=== PATIENT | male | born 1965 | race Caucasian/White ===

== ENCOUNTER 2023-11-02 17:26 | Emergency (ER) | payer OTHER, SELFPAY ==
[2023-11-02 17:27] VITALS: BP 178/77; PULSE 67; RESP 16; TEMP 37.1; O2SAT 98; BMI 30.9
--- NOTE | 2023-11-02 17:56 | EKG12_ITS ---
Test Reason : CP Blood Pressure : / mmHG Vent. Rate : 068 BPM Atrial Rate : 068 BPM P-R Int : 190 ms QRS Dur : 086 ms QT Int : 394 ms P-R-T Axes : 005 016 024 degrees QTc Int : 418 ms Normal sinus rhythm Normal ECG Confirmed by KP ANTOINE, JODEE ([id number]), editor continuity and script HAILEE FRANCISCO ([id number]) on 11/07/2023 10:49:40 A M Referred By: ES/UG Confirmed By:YOLANDE GOODRICH MD
--- NOTE | 2023-11-02 17:58 | EX.ED.DYSGE1 ---
HPI <CLARA Alvarenga - Last Filed: 11/02/23 18:40> History of Present Illness Chief Complaint: Chest Pain Narrative Narrative: Patient is a 58-year-old male with history of hypertension hyperlipidemia, diabetes, CAD with history of CABG who is from [facility]. Patient is here with his family for camping. Patient woke up at roughly 4 AM, and he states he was sweaty, this has been ongoing for months. Patient is he noticed some slight chest discomfort midsternal that is been on and off for the last several hours. He is currently not having any pain however secondary to being out of town, his history of cardiac disease, he wanted to make sure everything was okay. Patient dates he does not feel like he is getting ready to have a sinus infection with some pressure in his face however patient has no cough, fever chills nausea or vomiting. Patient states that the pain comes and goes and does not matter if he is exerting himself or not. PFS <CLARA Alvarenga - Last Filed: 11/02/23 18:40> [facility] Home Medications ?Medication ?Instructions ?Recorded ?Last Taken ?Type alprazolam 0.5 mg tablet 0.5 mg PO BID PRN anxiety 11/02/23 Unknown History amlodipine 10 mg tablet 10 mg PO DAILY 11/02/23 Unknown History aspirin 81 mg chewable tablet 1 tab PO DAILY 11/02/23 Unknown History atorvastatin 80 mg tablet 80 mg PO DAILY 11/02/23 Unknown History clopidogrel 75 mg tablet 75 mg PO DAILY 11/02/23 Unknown History glipizide 10 mg tablet 10 mg PO BID 11/02/23 Unknown History hydralazine 100 mg tablet 100 mg PO BID 11/02/23 Unknown History insulin lispro 100 unit/mL 15 unit subcut BID 11/02/23 Unknown History subcutaneous pen (Humalog KwikPen (U-100) Insulin) lisinopril 20 1 tab PO DAILY 11/02/23 Unknown History mg-hydrochlorothiazide 12.5 mg tablet metformin 1,000 mg tablet 1,000 mg PO BID 11/02/23 Unknown History metoprolol tartrate 25 mg tablet 25 mg PO BID 11/02/23 Unknown History Allergy/AdvReac Type Severity Reaction Status Date / Time sulfamethoxazole (From Allergy Intermediate Hives Verified 11/02/23 17:31 Bactrim) trimethoprim (From Bactrim) Allergy Intermediate Hives Verified 11/02/23 17:31 Social History Smoking Status: Never smoker ROS <CLARA Alvarenga - Last Filed: 11/02/23 18:40> ROS ED ROS Narrative Constitutional: Negative for fever, chills, weight loss, weakness Eyes: Negative for vision loss, vision change, double vision ENT: Negative for any sore throat, ear pain, congestion Cardiovascular: Negative for any palpitations. Positive for chest pain, chest tightness Respiratory: Negative for any cough, sputum production, hemoptysis, dyspnea, dyspnea on exertion, orthopnea Gastrointestinal: Negative for any abdominal pain, nausea, vomiting, diarrhea, constipation, blood in stool, blood in vomit : Negative for any urinary frequency, dysuria, retention, blood in urine Muscle skeletal: Negative for any neck pain, back pain Neurological: Negative for any headache, syncope, dizziness Skin: Negative for any rashes, itching, abrasions, lacerations Psychiatric: Negative for any depression, anxiety, stress, suicidal ideation, homicidal ideation Hematologic: Negative for any excessive bruising, easy bleeding EXAM <CLARA Alvarenga - Last Filed: 11/02/23 18:40> Physical Exam Narrative Exam Narrative: Vital signs reviewed. HEET: Head normocephalic atraumatic, TMs clear bilaterally. Posterior pharynx is clear, moist mucous membranes. Nares clear bilaterally. Neck: Supple with no lymphadenopathy or tenderness. No signs of meningismus. Cardiac: Regular rate and rhythm no murmurs gallops or rubs, equal peripheral pulses bilaterally. Respiratory: Lungs clear to auscultation bilaterally. No chest tenderness. Abdomen: Soft, nontender, nondistended. No abdominal bruit or pulsatile masses. No hepatosplenomegaly Extremities: No peripheral edema, no signs of gross trauma or deformity. Active full range of motion of all extremities. Neuro: Cranial nerves II through XII intact, no focal neurological deficits. Skin: Clean dry and intact with no rash, purpura, petechiae, vesicles or pustules. Backs/flank: No CVA tenderness, no midline spinal tenderness, no deformity. Psych: Normal mood and affect. No SI, HI or acute psychosis. Const Vital Signs: 11/02/23 17:26 11/02/23 17:27 11/02/23 17:56 Temperature 98.8 F Temperature Source Oral Pulse Rate 67 Respiratory Rate 16 Respiratory Effort Normal Non-Labored Blood Pressure 178/77 H Blood Pressure Mean 110 Pulse Ox 98 Oxygen Delivery Method Room Air Room Air 11/02/23 18:15 11/02/23 18:42 Temperature 98 F Temperature Source Pulse Rate 70 77 Respiratory Rate 27 H 18 Respiratory Effort Blood Pressure 150/69 H 171/77 H Blood Pressure Mean 91 108 Pulse Ox 99 Oxygen Delivery Method <Dr. Gorge Gandhi MD - Last Filed: 11/02/23 19:13> Physical Exam Const Vital Signs: 11/02/23 17:26 11/02/23 17:27 11/02/23 17:56 Temperature 98.8 F Temperature Source Oral Pulse Rate 67 Respiratory Rate 16 Respiratory Effort Normal Non-Labored Blood Pressure 178/77 H Blood Pressure Mean 110 Pulse Ox 98 Oxygen Delivery Method Room Air Room Air 11/02/23 18:15 11/02/23 18:42 Temperature 98 F Temperature Source Pulse Rate 70 77 Respiratory Rate 27 H 18 Respiratory Effort Blood Pressure 150/69 H 171/77 H Blood Pressure Mean 91 108 Pulse Ox 99 Oxygen Delivery Method MDM <CLARA Alvarenga - Last Filed: 11/02/23 18:40> [facility] Lab Data Labs: Laboratory Results - last 24 hr 11/02/23 17:48 WBC 10.1 RBC 5.39 Hgb 14.1 Hct 42.7 MCV 79.2 L MCH 26.2 L MCHC 33.0 RDW Std Deviation 40.9 RDW Coeff of Sage 14.3 Plt Count 479 H MPV 10.3 Immature Gran % (Auto) 0.500 Neut % (Auto) 71.7 H Lymph % (Auto) 16.1 L Winston % (Auto) 9.8 Eos % (Auto) 1.4 Baso % (Auto) 0.5 Absolute Neuts (auto) 7.3 Absolute Lymphs (auto) 1.63 Nucleated RBC % 0 Sodium 135 L Potassium 4.0 Chloride 101 Carbon Dioxide 25.0 Anion Gap 9 BUN 15 Creatinine 0.88 Estim Creat Clear Calc 102.82 Est GFR (MDRD) Af Amer 114 Est GFR (MDRD) Non-Af 94 BUN/Creatinine Ratio 17.1 Glucose 144 H Calcium 9.6 Troponin I High Sens 12 Radiography Diagnostic Testing: Clinical Impression(s) from Imaging Studies Chest X-Ray 11/02/23 18:05 IMPRESSION: Probable areas of pleural-parenchymal scarring in the left lung and costophrenic angle but without prior studies, cannot exclude active disease. Consider CT if clinically indicated. Electronically Signed: Deangelo Olivarez MD at 18:53 EDT , EKG Normal sinus rhythm: Attestation: I personally reviewed and interpreted this EKG as follows: Interpretation: Sinus Rhythm Comments: Normal sinus rhythm, rate of 68 bpm, KS 190 ms, QRS duration 86 ms, no acute ST elevation, no acute infarct noted. Treatment and Re-Evaluation :: Differential diagnosis includes however is not limited to: ACS, DE, bronchitis, muscle strain, NSTEMI Patient appears to be in no obvious distress vital signs are stable, presenting to the emergency department with complaints of chest pain. Patient's vital signs are stable patient is nontoxic-appearing. Presenting to the emergency department with chest pain that is ongoing for the last 12 to 14 hours. Patient received a cardiac workup, patient does have cardiac history, multiple risk factors. Patient is pain-free on my examination. EKG was unremarkable. All radiologic examinations were read, reviewed by the emergency department attending. From these reads, a plan of care will be put in place. Patient's chest x-ray was negative. CBC was unremarkable, chemistries were unremarkable, troponin was 12 which is negative. At this time, patient EKG was unremarkable, no evidence of any ACS or DE. This does not sound like cardiac chest pain, patient at this time we discharged home. He will return for any worsening symptoms. All questions answered, stable for discharge <Dr. Gorge Gandhi MD - Last Filed: 11/02/23 19:13> [facility] Narrative Medical decision making narrative: I have personally performed a face to face assessment of the patient and have reviewed the JUANITO Note. I performed a substantive portion of the visit including all aspects of the following. My mendoza findings include: History is remarkable for coronary disease. He had episode of chest discomfort at rest last evening that lasted seconds. Another episode today at 1:00 that was very short duration. There is no associated symptoms. No radiation. Patient was concerned because he has risk factors for cardiac disease and known cardiac disease. Patient has been pain-free since 1 PM. Exam is vital signs are marked for elevated blood pressure. His vital signs otherwise unremarkable. BMI is 31. HEENT is grossly unremarkable. Lungs are clear auscultation with symmetric breath sounds. Heart is regular. Rate is normal. Is no murmur, gallop or rub. Abdomen is benign. There is no asymmetry, swelling, discoloration, leg vein distention, palpable cords or tenderness along the distribution of the deep venous system. Alert orient x 3. Medical Decision Making patient with atypical chest pain. Patient was initially seen by nurse practitioner. Evaluation was undertaken which included EKG, chest x-ray and blood work. Patient's troponin is normal. Plan is to discharge to home. Other additions or changes: [None] Lab Data Attestation: I reviewed the patient's lab results. Lab results narrative: White count is normal. Electrolyte panel is marked for glucose of 144 with a normal CO2 anion gap Labs: Laboratory Results - last 24 hr 11/02/23 17:48 WBC 10.1 RBC 5.39 Hgb 14.1 Hct 42.7 MCV 79.2 L MCH 26.2 L MCHC 33.0 RDW Std Deviation 40.9 RDW Coeff of Sage 14.3 Plt Count 479 H MPV 10.3 Immature Gran % (Auto) 0.500 Neut % (Auto) 71.7 H Lymph % (Auto) 16.1 L Winston % (Auto) 9.8 Eos % (Auto) 1.4 Baso % (Auto) 0.5 Absolute Neuts (auto) 7.3 Absolute Lymphs (auto) 1.63 Nucleated RBC % 0 Sodium 135 L Potassium 4.0 Chloride 101 Carbon Dioxide 25.0 Anion Gap 9 BUN 15 Creatinine 0.88 Estim Creat Clear Calc 102.82 Est GFR (MDRD) Af Amer 114 Est GFR (MDRD) Non-Af 94 BUN/Creatinine Ratio 17.1 Glucose 144 H Calcium 9.6 Troponin I High Sens 12 Radiography Chest X-Ray - ED: 1 View and Read by ED Physician (Cardiac silhouette and size normal. Lung parenchyma normal. Hilum is normal. Osseous trucks without any acute process.) Diagnostic Testing: Clinical Impression(s) from Imaging Studies Chest X-Ray 11/02/23 18:05 IMPRESSION: Probable areas of pleural-parenchymal scarring in the left lung and costophrenic angle but without prior studies, cannot exclude active disease. Consider CT if clinically indicated. Electronically Signed: Deangelo Olivarez MD at 18:53 EDT , Discharge Plan Triage Chief Complaint: Chest Pain ED Midlevel Provider: James Guillory ED Provider: Gorge Gandhi Dx/Rx/DC Orders Clinical Impression: Chest pain, History of coronary artery disease, Type 2 diabetes mellitus, History of hypertension, Hx of hypercholesterolemia Instructions: ED Chest Pain, Noncardiac Prescriptions: No Action hydralazine 100 mg tablet 100 mg PO BID metoprolol tartrate 25 mg tablet 25 mg PO BID glipizide 10 mg tablet 10 mg PO BID amlodipine 10 mg tablet 10 mg PO DAILY metformin 1,000 mg tablet 1,000 mg PO BID lisinopril-hydrochlorothiazide 20-12.5 mg tablet 1 tab PO DAILY clopidogrel 75 mg tablet 75 mg PO DAILY aspirin 81 mg tablet,chewable 1 tab PO DAILY alprazolam 0.5 mg tablet 0.5 mg PO BID PRN (Reason: anxiety) atorvastatin 80 mg tablet 80 mg PO DAILY insulin lispro [Humalog KwikPen Insulin] 100 unit/mL insulin pen 15 unit subcut BID Primary Care Provider: AL FERRIS Referrals: AL FERRIS [Other] Activity Restrictions/Additional Instructions: Please follow-up outpatient. He had a negative chest pain workup today. Print Language: Kinyarwanda Disposition Disposition: Home, Self Care Discharge Date/Time: 11/02/23 18:48
--- NOTE | 2023-11-02 18:05 | RAD_ITS ---
STUDY: X-RAY CHEST REASON FOR EXAM: Male, 58 years old. chest pain TECHNIQUE: Single AP portable view of the chest. COMPARISON: None. FINDINGS: Normal lung volumes. Mild densities in the mid left lung and left basilar ganglia most suggestive of scarring. However cannot exclude small left pleural effusion and small areas of atelectasis since there are no prior studies. Right lung is clear. Normal size heart. Previous CABG. Normal mediastinum and dona. Normal visualized pulmonary arteries. Normal visualized aortic arch and descending thoracic aorta. Normal visualized thoracic spine. Normal visualized ribs, clavicles, and shoulders. There is no demonstrated abnormality of the visualized soft tissue structures of the upper abdomen. RAD/Chest 1 View (Portable) IMPRESSION: Probable areas of pleural-parenchymal scarring in the left lung and costophrenic angle but without prior studies, cannot exclude active disease. Consider CT if clinically indicated. Electronically Signed: Deangelo Olivarez MD at 18:53 EDT ,
[2023-11-02 18:07] LABS: Absolute Lymphocyte Count 1.63 X10^3/uL (0.83-4.51); Absolute Neutrophil Count 7.3 X10^3/uL (2.0-7.7); Basophil# 0.05 X10^3/uL; Basophil% 0.5 % (0-1); Eosinophil# 0.14 X10^3/uL; Eosinophils% 1.4 % (0-5); Hematocrit 42.7 % (40-54); Hemoglobin 14.1 g/dL (13.0-16.5); Lymphocyte # 1.63 X10^3/ul (0.83-4.51); Lymphocyte % 16.1 % (19-41); Mean Corpuscular Hgb 26.2 pg (27.0-32.0); Mean Corpuscular Volume 79.2 fL (80-94); Mean Platelet Vol. 10.3 fl (6.2-12.0); Monocyte# 0.99 X10^3/uL; Monocyte% 9.8 % (0-10); NRBC Flagged by Analyzer 0 % (0-5); Neutrophil # 7.25 X10^3/uL (2.7-7.7); Neutrophil % 71.7 % (47-70); Platelet Count 479 K/mm3 (150-450); RBC Distribution Width CV 14.3 % (11.6-14.6); RBC Distribution Width SD 40.9 fl (35.1-43.9); Red Blood Count 5.39 M/mm3 (4.6-6.2); White Blood Count 10.1 K/mm3 (4.4-11.0)
[2023-11-02 18:15] VITALS: BP 150/69; PULSE 70; RESP 27
[2023-11-02 18:24] LABS: Anion Gap 9 (5-15); BUN 15 mg/dL (7-18); BUN/Creat Ratio 17.1 RATIO (10-20); Calcium,Total 9.6 mg/dL (8.5-10.1); Chloride 101 mmol/L (98-107); Creatinine, Serum 0.88 mg/dL (0.70-1.30); EST Glomerular Filtration Rate 94 mL/min (>60); Est Glom Filt Rate - Afr Amer 114 mL/min (>60); Estimated Creatinine Clearance 102.82 ml/min; Glucose 144 mg/dL (74-106); Sodium Level 135 mmol/L (136-145); Troponin-I HS (w/2H Reflex) 12 pg/mL (3.0-78.0)
[2023-11-02 18:42] VITALS: BP 171/77; PULSE 77; RESP 18; TEMP 36.6; O2SAT 99
[2023-11-02 20:01] LABS: Reflex Troponin-HS? (from REC) Y
== END 2023-11-02 18:48 | disposition home or self-care (01) ==
PROVIDERS: Nurse Practitioner; Emergency Provider Emergency Medicine; Visit Provider Emergency Medicine
DX: R07.9 Chest pain, unspecified (principal); E11.9 Type 2 diabetes mellitus without complications; I25.10 Atherosclerotic heart disease of native coronary artery without angina pectoris; I10 Essential (primary) hypertension; E78.00 Pure hypercholesterolemia, unspecified; Z95.1 Presence of aortocoronary bypass graft
CPT/HCPCS: 71045; 80048; 84484; 85025; 93005; 99284; A4216